=== PATIENT | male | born 1975 | race Caucasian/White ===

== ENCOUNTER 2016-05-06 12:26 | Inpatient (IN) | payer MEDICARE, MEDICAID ==
[~2016-05-06] VITALS: Ht 172.7 cm; Wt 104.4 kg
[2016-05-06 13:10] LABS: BASO # 0.1 (0.0-0.2); BASO % 1.1 % (0.0-2.0); EOS # 0.3 (0.0-0.7); EOS % 3.1 % (0-4.0); GRAN # 6.7 (1.4-6.5); GRAN % 72.1 % (42.2-75.2); HEMATOCRIT 44.6 % (42.0-52.0); HEMOGLOBIN 14.5 g/dl (13.5-18.0); LYMPH # 1.6 (1.2-3.4); LYMPH % 17.5 % (20.0-51.0); MEAN CELL VOLUME 85 fl (80.0-100.0); MEAN CORPUSCULAR HEMOGLOBIN 28 pg (27.0-31.0); MEAN CORPUSCULAR HGB CONC 33 g/dl (33.0-37.0); MEAN PLATELET VOLUME 10.1 fl (7.4-10.4); MONO # 0.5 (0.1-0.6); MONO % 5.8 % (1.7-9.3); PLATELET COUNT 342 K/mm3 (130-400); RED BLOOD COUNT 5.22 M/mm3 (4.20-5.60); REDCELL DISTRIBUTION WIDTH-CV 13.1 % (11.5-14.5); WHITE BLOOD COUNT 9.3 K/mm3 (4.8-10.8)
[2016-05-06] MEDS ORDERED: COGENTIN 1MG1 MG/TAB PO (13:32)
[2016-05-06] MEDS ORDERED: TENORMIN 2525 MG/TAB PO (13:32)
[2016-05-06] MEDS ORDERED: RISPERDAL CONST50 MG IM (13:33)
[2016-05-06] MEDS ORDERED: HALDOL 1MG T1 MG/TAB PO ×2 (13:34→21:28)
[2016-05-06 13:43] LABS: AMPHETAMINE URINE NEGATIVE; BARBITURATES URINE NEGATIVE; BENZODIAZEPINES URINE NEGATIVE; BUPRENORPHINE URINE NEGATIVE; METHADONE URINE NEGATIVE; OPIATES URINE NEGATIVE; OXYCODONE URINE NEGATIVE; PHENCYCLIDINE URINE NEGATIVE; PROPOXYPHENE URINE NEGATIVE; THC CANNABINOIDS URINE NEGATIVE
[2016-05-06 14:50] LABS: ANION GAP 12 mmol/L (7-16); BLOOD UREA NITROGEN 12 mg/dL (9-20); CARBON DIOXIDE 26 mmol/L (22-30); CHLORIDE 101 mmol/L (98-107); CREATININE, serum 0.92 mg/dL (0.66-1.25); GLUCOSE 106 mg/dL (74-106); POTASSIUM 4.4 mmol/L (3.4-5.0); SODIUM 138 mmol/L (137-145)
[2016-05-06 14:52] LABS: ACETAMINOPHEN < 10 ug/mL (10-30); SALICYLATE < 1.0 mg/dL
[2016-05-06 20:13] VITALS: O2SAT 96
[2016-05-06 20:29] VITALS: BP 127/87; PULSE 83; TEMP 98.4
[2016-05-07] VITALS (8 sets, daily range): BP systolic 110–140; BP diastolic 69–95; PULSE 58–88; TEMP 97.4–98.4; O2SAT 77–98
[2016-05-08] VITALS (262 sets, daily range): BP systolic 113–138; BP diastolic 64–96; PULSE 64–105; TEMP 97.8–98.7; O2SAT 38–100
[2016-05-08 06:16] LABS: ADJUSTED CALCIUM 9.1 mg/dL (8.4-10.2); ALBUMIN 3.5 gm/dL (3.5-5.0); BILIRUBIN,TOTAL 0.5 mg/dL (0.0-1.0); CALCIUM 8.7 mg/dL (8.4-10.2); CREATININE, serum 0.89 mg/dL (0.66-1.25); POTASSIUM 4.2 mmol/L (3.4-5.0); TOTAL PROTEIN 6.7 gm/dL (6.4-8.2)
[2016-05-09] VITALS (33 sets, daily range): BP systolic 115–140; BP diastolic 65–91; PULSE 64–106; TEMP 97.2–98.4; O2SAT 93–97
[2016-05-10] VITALS (9 sets, daily range): BP systolic 94–144; BP diastolic 77–96; PULSE 93–110; TEMP 97–98.4
== END 2016-05-10 20:42 | DRG 885 ==
LOC: COL.ER 12:26 → ICU 19:32
PROVIDERS: Emergency Medicine; Nurse Practitioner; Psychiatry & Neurology Psychiatry
DX: F25.0 Schizoaffective disorder, bipolar type (principal); I10 Essential (primary) hypertension
CPT/HCPCS: 90791-AI; G0378; J1200; J1630; J2060; J3486